=== PATIENT | male | born 1985 | race Caucasian/White ===

== ENCOUNTER 2017-01-11 18:37 | Emergency (ER) | payer BC ==
[2011-06-13 17:33] VITALS: BMI 25.1
== END 2017-01-11 21:00 | disposition left against medical advice (07) ==
LOC: D.ER 18:37
DX: M54.9 Dorsalgia, unspecified (principal); V43.52XA Car driver injured in collision with other type car in traffic accident, initial encounter; Y93.89 Activity, other specified; Y92.410 Unspecified street and highway as the place of occurrence of the external cause